=== PATIENT | female | born 1985 | race Caucasian/White ===

== ENCOUNTER 2022-01-23 23:45 | Inpatient (IN) | payer BC, OTHER ==
[2022-01-24] MEDS ORDERED: DEXTROSE 5%-LACTATED RINGERS 1,000 ML IV SCH (01:00)
[2022-01-24] MEDS ORDERED: AMPICILLIN SODIUM 2 GM VIAL ONE (02:01)
[2022-01-24] MEDS ORDERED: AMPICILLIN - 2 GM in SODIUM CHLORIDE 100 ML IVPB ONE (02:05)
[2022-01-24] MEDS ORDERED: PROMETHAZINE HCL 25 MG/1 ML VIAL IVPB ONE (02:45)
[2022-01-24] MEDS ORDERED: BUTORPHANOL TARTRATE 2 MG/ML VIAL IVPB ONE (02:45)
[2022-01-24] MEDS ORDERED: PROMETHAZINE HCL 25 MG/1 ML VIAL ONE (02:53)
[2022-01-24] MEDS ORDERED: BUTORPHANOL TARTRATE 2 MG/ML VIAL ONE (02:53)
[2022-01-24 02:56] LABS: BASO % 0.1 % (0-2.0); EOS % 0.4 % (0-4.5); HEMATOCRIT 38.4 % (32.4-45.2); HEMOGLOBIN 13.2 GM/dL (10.7-15.3); MCH 32.2 pg (25.7-33.7); MCHC 34.3 g/dl (32.0-36.0); MEAN PLT VOLUME 9.3 fl (7.5-11.1); MONO % 5.8 % (3.8-10.2); NEUT % 73.7 % (42.8-82.8); PLATELET COUNT 225 10^3/uL (134-434); RBC 4.08 M/mm3 (3.60-5.2); RDW 12.6 % (11.6-15.6); WHITE BLOOD COUNT 12.9 K/mm3 (4.0-10.0)
[2022-01-24 02:59] LABS: EPI CELLS 8 /uL (0-25.1); HYALINE CASTS 2 /uL (0-3.1); URINE APPEARANCE CLEAR; URINE BACTERIA 4418 /uL (0-1359); URINE BILIRUBIN NEGATIVE (NEGATIVE); URINE COLOR YELLOW; URINE GLUCOSE (UA) NEGATIVE (NEGATIVE); URINE KETONE NEGATIVE (NEGATIVE); URINE LEUK ESTERASE 2+ (NEGATIVE); URINE NITRITE NEGATIVE (NEGATIVE); URINE PROTEIN TRACE (NEGATIVE); URINE RBC 2 /uL (0-23.9); URINE WBC 115 /uL (0-25.8)
[2022-01-24 03:04] LABS: METHADONE, UR NEGATIVE (NEGATIVE); URINE AMPHETAMINES NEGATIVE (NEGATIVE); URINE BENZODIAZEPINES NEGATIVE (NEGATIVE)
[2022-01-24 03:05] LABS: OPIATES, URI NEGATIVE (NEGATIVE); PHENCYCLIDINE,URINE NEGATIVE (NEGATIVE); URINE BARBITURATES NEGATIVE (NEGATIVE)
[2022-01-24 03:14] LABS: COCAINE, UR NEGATIVE (NEGATIVE)
[2022-01-24 03:24] LABS: CALCIUM 8.9 mg/dL (8.5-10.1)
[2022-01-24 03:25] LABS: BLOOD UREA NITROGEN 5.9 mg/dL (7-18)
[2022-01-24 03:28] LABS: CREATININE 0.7 mg/dL (0.55-1.3)
[2022-01-24 03:31] LABS: YEAST NONE SEEN (NEGATIVE)
[2022-01-24 03:33] VITALS: BMI 34.0
[2022-01-24 03:52] LABS: HEPATITIS B SURFACE AG MATERN NON-REACTIVE (NONREACTIVE)
[2022-01-24 04:21] LABS: HIV INTERPRETATION NEGATIVE (NEGATIVE)
[2022-01-24 05:28] LABS: INR 0.9 (0.83-1.09); PROTHROMBIN TIME (PATIENT) 10.3 SEC (9.7-13.0)
[2022-01-24 05:31] LABS: ACTIVATED PTT 26.6 SECONDS (25.2-36.5)
[2022-01-24] MEDS ORDERED: AMPICILLIN SODIUM 1 GM VIAL ONE ×2 (06:02→10:03)
[2022-01-24] MEDS: AMPICILLIN - 1 GM in SODIUM CHLORIDE 100 ML IVPB SCH ×3 (06:05→14:48)
[2022-01-24] MEDS ORDERED: OXYTOCIN 30 UNITS in 0.9% NS 30 UNIT/500 ML INFUS.BAG IVPB SCH (06:30)
[2022-01-24] MEDS ORDERED: OXYTOCIN 30 UNITS in 0.9% NS 30 UNIT/500 ML INFUS.BAG IVPB ONE (07:24)
[2022-01-24] MEDS ORDERED: FENTANYL/BUPIVACAINE/NS/PF - PCEA - 50 ML DISP.SYRIN EP ONE (07:43)
[2022-01-24] MEDS: ELECTROLYTE-148 SOLN 1,000 ML IV SCH ×2 (07:45→09:30)
[2022-01-24] MEDS ORDERED: BUPIVACAINE HCL/PF 0.25% (2.5MG/ML) 10 ML VIAL ONE (08:05)
[2022-01-24] MEDS ORDERED: LIDOCAINE HCL 1% PRESERVATIVE FREE - 30ML VIAL ONE ×2 (08:05→11:33)
[2022-01-24] MEDS ORDERED: NALOXONE HCL 0.4 MG/ML VIAL IVPUSH PRN (08:57)
[2022-01-24] MEDS ORDERED: FENTANYL/BUPIVACAINE/NS/PF - PCEA - 50 ML DISP.SYRIN EP SCH ×2 (09:00→09:10)
[2022-01-24] MEDS ORDERED: OXYTOCIN 20 UNITS in 0.9% NS 20 UNIT/1,000 ML INFUS.BAG IV ONE (11:32)
[2022-01-24] MEDS ORDERED: BISACODYL 10 MG SUPP.RECT RC PRN (14:02)
[2022-01-24] MEDS ORDERED: METHYLERGONOVINE MALEATE 0.2 MG/1 ML AMP IM PRN (14:02)
[2022-01-24] MEDS ORDERED: oxyCODONE HCL 5 MG TABLET PO PRN (14:02)
[2022-01-24] MEDS ORDERED: WITCH HAZEL 50% (TUCKS) 40 PAD/JAR PAD TP PRN (14:02)
[2022-01-24] MEDS ORDERED: BENZOCAINE 28 GM HEMORRHOIDAL OINTMENT TP PRN (14:02)
[2022-01-24] MEDS ORDERED: BENZOCAINE 20% 57 GM BOTTLE TP PRN (14:02)
[2022-01-24] MEDS ORDERED: OXYTOCIN 20 UNITS in 0.9% NS 20 UNIT/1,000 ML INFUS.BAG IV SCH (14:15)
[2022-01-24] MEDS ORDERED: IBUPROFEN 600 MG TABLET (FP) PO ONE (15:13)
[2022-01-24 15:30] LABS: CORD BASE EXCESS -5.4 mmol/L (0-2); CORD HCO3 24.3 mmHg (20-29); CORD PCO2 63.6 mmHg (30-78); CORD pH 7.2 (7.14-7.44)
[2022-01-24 15:35] LABS: CORD BASE EXCESS -6.3 mmol/L (0-2); CORD HCO3 21.3 mmHg (20-29); CORD PCO2 49.5 mmHg (30-78); CORD pH 7.252 (7.14-7.44)
[2022-01-24] MEDS: IBUPROFEN 600 MG TABLET (FP) PO PRN ×2 (15:45→20:12)
[2022-01-25 10:55] LABS: BASO % 0.3 % (0-2.0); EOS % 0.5 % (0-4.5); HEMATOCRIT 28.5 % (32.4-45.2); HEMOGLOBIN 9.9 GM/dL (10.7-15.3); LYMPH % 15.8 % (8-40); MCH 33.1 pg (25.7-33.7); MCHC 34.9 g/dl (32.0-36.0); MEAN CELL VOLUME 94.9 fl (80-96); MEAN PLT VOLUME 8.7 fl (7.5-11.1); MONO % 4.7 % (3.8-10.2); NEUT % 78.7 % (42.8-82.8); PLATELET COUNT 189 10^3/uL (134-434); RDW 12.8 % (11.6-15.6); WHITE BLOOD COUNT 13.4 K/mm3 (4.0-10.0)
[2022-01-25] MEDS: IBUPROFEN 600 MG TABLET (FP) PO PRN ×2 (12:15→18:10)
[2022-01-25] MEDS: ACETAMINOPHEN 325 MG TABLET (FP) PO PRN (20:34)
[2022-01-25] MEDS ORDERED: SENNOSIDES/DOCUSATE COMBO (SENNA PLUS) TABLET (UD) PO PRN (22:00)
[2022-01-26] MEDS: IBUPROFEN 600 MG TABLET (FP) PO PRN ×2 (00:22→11:33)
[2022-01-26] MEDS: ACETAMINOPHEN 325 MG TABLET (FP) PO PRN (02:22)
[2022-01-26 11:21] VITALS: BP 120/80; PULSE 65; TEMP 98.5
== END 2022-01-26 13:25 | disposition home or self-care (01) | DRG 807 ==
LOC: JDEL 23:45 → JLDR 01-24 01:40 → J3W 01-24 16:37
PROVIDERS: ADMIT Obstetrics & Gynecology; ATTEND Obstetrics & Gynecology
PROC: 10E0XZZ Delivery of Products of Conception, External Approach (ICD-10-PCS; principal; 2022-01-24)
PROC: 0W8NXZZ Division of Female Perineum, External Approach (ICD-10-PCS; 2022-01-24)
DX: O69.81X0 Labor and delivery complicated by cord around neck, without compression, not applicable or unspecified (principal); Z37.0 Single live birth; Z3A.38 38 weeks gestation of pregnancy
CPT/HCPCS: 36415; 36600; 59409; 80048; 80307; 81003; 82803; 85025; 85610; 85730; 86762; 86780; 86850; 86900; 86901; 87340; 87389; C9803-CS; U0003; U0005